=== PATIENT | male | born 1995 | race African-American/Black ===

== ENCOUNTER 2023-05-05 12:24 | Emergency (ER) | payer MEDICAID ==
[~2023-05-05] VITALS: Ht 175.3 cm; Wt 68.0 kg
[2023-05-05] MEDS ORDERED: LEVETIRACETAM 1000MG PREMIX 100 ML IV ONE (13:30)
[2023-05-05 13:42] LABS: CHLORIDE 108 mEq/L (98-107)
[2023-05-05 13:54] LABS: ETHANOL BLOOD < 10 mg/dL (-10)
[2023-05-05 14:06] LABS: BASOPHILS % 0.6 % (0.0-2.0); EOSINOPHILS % 0.5 % (0.0-5.0); HEMATOCRIT. 43.9 % (42.0-52.0); HEMOGLOBIN. 14.4 g/dL (14.0-18.0); LYMPHOCYTES % 25.2 % (20.0-50.0); MEAN CORPUSCULAR HEMOGLOBIN 27.7 pg (28.0-32.0); MEAN CORPUSCULAR VOLUME 84.6 fL (80.0-94.0); MEAN PLATELET VOLUME 8.9 fl (7.4-10.4); MONOCYTES % 8.5 % (2.0-8.0); NEUTROPHILS % 65.2 % (40.0-76.0); PLATELET 194 x1000/uL (130-400); RED BLOOD CELL COUNT 5.19 mill/uL (4.7-6.1); RED CELL DISTRIBUTION WIDTH 13.9 % (11.6-14.6)
[2023-05-05] MEDS ORDERED: KEPP500 MT (16:31)
[2023-05-05 17:00] VITALS: BP 119/81
== END 2023-05-05 17:41 | disposition home or self-care (01) ==
LOC: ER 12:24
DX: R56.9 Unspecified convulsions (principal); J45.909 Unspecified asthma, uncomplicated
CPT/HCPCS: 36415; 80053; 80320; 85025; 96365; 99284; J1953; G0480

== ENCOUNTER 2024-08-30 21:21 | Emergency (ER) | payer SELFPAY ==
[~2024-08-30] VITALS: Ht 170.2 cm; Wt 78.0 kg
[~2024-08-30 21:21] MED LIST: KEPP500 MT
[2024-08-30 21:35] VITALS: TEMP 98.8; O2SAT 100
[2024-08-30 22:22] LABS: BASOPHILS % 0.9 % (0.0-2.0); EOSINOPHILS % 0.4 % (0.0-5.0); HEMATOCRIT. 41.9 % (42.0-52.0); HEMOGLOBIN. 13.6 g/dL (14.0-18.0); LYMPHOCYTES % 21.5 % (20.0-50.0); MEAN CORPUSCULAR HEMOGLOBIN 28.2 pg (28.0-32.0); MEAN CORPUSCULAR HGB CONC 32.5 g/dL (31.0-37.0); MEAN CORPUSCULAR VOLUME 86.8 fL (80.0-94.0); MEAN PLATELET VOLUME 8.5 fl (7.4-10.4); MONOCYTES % 7.3 % (2.0-8.0); NEUTROPHILS % 69.9 % (40.0-76.0); PLATELET 185 x1000/uL (130-400); RED BLOOD CELL COUNT 4.83 mill/uL (4.7-6.1); RED CELL DISTRIBUTION WIDTH 14.5 % (11.6-14.6); WHITE BLOOD COUNT 8.9 x1000/uL (4.5-11.0)
[2024-08-30 22:25] LABS: CHLORIDE 105 mEq/L (98-107); POTASSIUM 3.5 mEq/L (3.5-5.1); SODIUM 138 mEq/L (136-145)
[2024-08-30 22:26] LABS: CALCIUM 9.8 mg/dL (8.7-10.4); CARBON DIOXIDE 28 mEq/L (21-32)
[2024-08-30] MEDS: LEVETIRACETAM 1000MG PREMIX 100 ML IV ONE (22:30)
[2024-08-30 22:31] LABS: CREATININE 1.5 mg/dL (0.6-1.3); GLUCOSE 100 mg/dL (70-105); UREA NITROGEN BLOOD 16 mg/dL (9-23)
[2024-08-30] MEDS ORDERED: KEPP500 MT (22:53)
[2024-08-30 23:07] VITALS: BP 131/78; PULSE 67; RESP 12; O2SAT 100
== END 2024-08-30 23:06 | disposition home or self-care (01) ==
LOC: ER 21:21
DX: G40.909 Epilepsy, unspecified, not intractable, without status epilepticus (principal); R41.0 Disorientation, unspecified; R79.89 Other specified abnormal findings of blood chemistry
CPT/HCPCS: 99284; 96365; 80048; 83735; 85025; 36415; J1953

== ENCOUNTER 2025-03-21 11:13 | Emergency (ER) | payer SELFPAY ==
[~2025-03-21] VITALS: Ht 170.2 cm; Wt 65.0 kg
[2025-03-21 11:19] VITALS: O2SAT 97
[2025-03-21 11:45] VITALS: TEMP 36.7
[2025-03-21 12:12] LABS: BASOPHILS % 1.4 % (0.0-2.0); HEMATOCRIT. 42.6 % (42.0-52.0); HEMOGLOBIN. 14.1 g/dL (14.0-18.0); LYMPHOCYTES % 28.3 % (20.0-50.0); MEAN CORPUSCULAR HEMOGLOBIN 27.8 pg (28.0-32.0); MEAN CORPUSCULAR HGB CONC 33.1 g/dL (31.0-37.0); MEAN CORPUSCULAR VOLUME 84.1 fL (80.0-94.0); MEAN PLATELET VOLUME 8.6 fl (7.4-10.4); MONOCYTES % 8.9 % (2.0-8.0); NEUTROPHILS % 60.4 % (40.0-76.0); PLATELET 204 x1000/uL (130-400); RED BLOOD CELL COUNT 5.07 mill/uL (4.7-6.1); RED CELL DISTRIBUTION WIDTH 14.2 % (11.6-14.6); WHITE BLOOD COUNT 5.9 x1000/uL (4.5-11.0)
[2025-03-21] MEDS: LEVETIRACETAM 1000MG PREMIX 100 ML IV ONE (12:17)
[2025-03-21 12:21] LABS: CARBON DIOXIDE 29 mEq/L (21-32); CHLORIDE 108 mEq/L (98-107); POTASSIUM 3.7 mEq/L (3.5-5.1); SODIUM 141 mEq/L (136-145)
[2025-03-21 12:22] LABS: CALCIUM 9.6 mg/dL (8.7-10.4)
[2025-03-21 12:27] LABS: CREATININE 1.1 mg/dL (0.6-1.3); ETHANOL BLOOD < 10 mg/dL (<10); GLUCOSE 96 mg/dL (70-105); UREA NITROGEN BLOOD 13 mg/dL (9-23)
[2025-03-21 13:46] VITALS: BP 135/86; PULSE 58; RESP 16; O2SAT 100
[2025-03-21] MEDS ORDERED: KEPP500 MT (14:05)
== END 2025-03-21 14:34 | disposition home or self-care (01) ==
LOC: ER 11:13
DX: G40.909 Epilepsy, unspecified, not intractable, without status epilepticus (principal); Z79.899 Other long term (current) drug therapy
CPT/HCPCS: 80048; 80320; 85025; 36415; 70450; 96374; 99285; J1953; G0480

== ENCOUNTER 2025-09-26 11:54 | Emergency (ER) | payer SELFPAY ==
[~2025-09-26] VITALS: Ht 180.3 cm; Wt 73.0 kg
[2025-09-26 11:56] VITALS: O2SAT 99
[2025-09-26] MEDS: LEVETIRACETAM 1000MG PREMIX 100 ML IV ONE (12:15)
[2025-09-26 12:58] LABS: BASOPHILS % 1.1 % (0.0-2.0); EOSINOPHILS % 0.6 % (0.0-5.0); HEMATOCRIT. 42.7 % (42.0-52.0); HEMOGLOBIN. 14.0 g/dL (14.0-18.0); LYMPHOCYTES % 27.5 % (20.0-50.0); MEAN PLATELET VOLUME 9.2 fl (7.4-10.4); MONOCYTES % 8.1 % (2.0-8.0); NEUTROPHILS % 62.7 % (40.0-76.0); PLATELET 170 x1000/uL (130-400); RED BLOOD CELL COUNT 5.04 mill/uL (4.7-6.1); RED CELL DISTRIBUTION WIDTH 14.0 % (11.6-14.6)
[2025-09-26 13:13] LABS: CREATININE 1.2 mg/dL (0.6-1.3); UREA NITROGEN BLOOD 9 mg/dL (9-23)
[2025-09-26] MEDS ORDERED: KEPP500 MT (13:17)
[2025-09-26 13:25] VITALS: BP 135/86; PULSE 65; RESP 18; TEMP 36.8; O2SAT 99
== END 2025-09-26 13:31 | disposition home or self-care (01) ==
LOC: ER 11:55
DX: R56.9 Unspecified convulsions (principal); Z59.00 Homelessness unspecified
CPT/HCPCS: 80048; 80320; 85025; 36415; 93005; 96365; 99284; J1953; A4606; G0480